=== PATIENT | male | born 1950 | race Caucasian/White ===

== ENCOUNTER → 2018-09-20 08:21 | Outpatient (CLI) | payer MEDICARE | END | disposition home or self-care (01) | LOC: D.CT 08:21 | DX: R07.9 Chest pain, unspecified (principal) ==

== ENCOUNTER → 2018-10-01 14:00 | Outpatient (CLI) | payer OTHER | END | disposition home or self-care (01) | LOC: D.HCCARDIO 14:00 | DX: R06.09 Other forms of dyspnea (principal) ==